=== PATIENT | male | born 1975 | race Caucasian/White ===

== ENCOUNTER 2018-08-18 22:31 | Observation (INO) | payer BC ==
[~2018-08-18] VITALS: Ht 190.5 cm; Wt 83.9 kg
--- NOTE | ~2018-08-18 | OP ---
PATIENT NAME: MALGORZATA ACOSTA MEDICAL RECORD: [id number] LOCATION:[id number] ADMISSION DATE:08/19/18 SURGEON: BHAVYA LUCIO DO DATE OF OPERATION: 08/19/2018 PROCEDURE PERFORMED: Left middle finger proximal interphalangeal joint open reduction with central slip repair with irrigation and debridement. PREOPERATIVE DIAGNOSES: Left middle finger central slip laceration with volar dislocation of the left middle finger PIP joint, this was open. POSTOPERATIVE DIAGNOSES: Left middle finger central slip laceration with volar dislocation of the left middle finger PIP joint, this was open. INDICATIONS: Mr. Acosta is a 43-year-old male who was using a pulp grinder and blender yesterday and a pulp grinder and blender wheel came off and went to his left middle finger causing a laceration and lacerated his central slip and also at the same time dislocated his PIP joint volarly. Upon noticing this, he went to the ER, he was washed out and attempted to be reduced. It could not be reduced in the ER. He was admitted overnight to have surgery today. I informed him of the risks and benefits of the procedure including risk for need for further surgery, repair of the central slip tendon and possible open reduction internal fixation if needed. He is aware of those risks, also the risk of infection and consented to the procedure. DESCRIPTION OF PROCEDURE: The patient was given a block by anesthesia in the operative area. He was given 2 grams Ancef preoperatively, taken to the operative suite. He had been given Ancef and tetanus in the ER prior. Once he was taken to the operative suite, the left upper extremity was prepped and draped with Betadine and a timeout was performed, everyone was agreement with the correct side, site, patient and procedure. Then, I had to remove the sutures that the ER used to loosely close the wound. The wound was then extended in order to open it up. The central slip was seen to be severed at the distal attachment site on the middle phalanx and was tucked into the wound, actually into the joint. This was removed and pulled out of the wound and then the finger reduced easily. The PIP joint reduced easily. This was confirmed on AP and lateral and oblique x-rays. There were no large fragments of fractures noted at that time and the central slip was then repaired with a 4-0 Ethibond using a number of [id number]-yi-[id number] sutures as well as simple sutures to what stump remained tucked into the lateral bands of the finger. Once had a good repair, it was stable and this was confirmed on AP and lateral. The wound was thoroughly irrigated prior to this and after this and then placed into an extension splint. The wound was closed with 4-0 nylon and 4-0 Monocryl in a simple pattern and dressed with Adaptic, 4 x 4s, Webril and then the extension splint was put on just covering the PIP joint, not past the DIP joint and this was overwrapped with an Philipp wrap. The tourniquet was used. The left upper extremity was exsanguinated prior to starting all this, was up for 28 minutes, it was let down at 28 minutes and there was no bleeding. At that time, the patient was awakened and taken to recovery in stable condition. BLOOD LOSS: Minimal. COMPLICATIONS: None. TRANSINT:[id number] Voice Confirmation ID: [id number] DOCUMENT ID: [id number] OPERATIVE REPORT [id number] MALGORZATA ACOSTA,BHAVYA Cruz DO at 0837 CC: [id number] DICTATION DATE: 08/19/18 1433 SLOT ATTENDANT: 08/19/18 1505 DIS IN 08/19/18 [facility] [address] [place] [address]
[2018-08-18 23:38] LABS: HEMATOCRIT 38.3 % (42.0-54.0); HEMOGLOBIN 12.8 g/dL (13.5-17.5); LYMPHOCYTES 21.7 % (15-50); MCH 27.6 pg (26.0-34.0); MCHC 33.4 g/dL (31.0-37.0); MCV 82.7 fL (80.0-100.0); MEAN PLATELET VOLUME 9.3 fL (7.4-10.4); NEUTROPHILS 68.7 % (40-80); PLATELET COUNT 251 10x3/uL (130-400); RBC 4.63 10x6/uL (4.20-6.10); RDW 14.2 % (11.5-14.5); WBC 8.9 10x3/uL (4.8-10.8)
[2018-08-18 23:50] LABS: APTT 33.1 SECONDS (22.8-39.4); INR 1.07 (0.85-1.17); PROTIME 13.5 SECONDS (11.6-15.0)
[2018-08-18 23:54] LABS: ALBUMIN 3.4 g/dL (3.4-5.0); ALKALINE PHOSPHATASE 70 U/L (46-116); ALT (SGPT) 23 U/L (10-68); CALC OSMOLALITY 279 mosm/kg (275-300); CALCIUM 8.3 mg/dL (8.5-10.1); CARBON DIOXIDE 25.9 mmol/L (21.0-32.0); CHLORIDE - SERUM 106 mmol/L (98-107); GLUCOSE 101 mg/dL (74-106); POTASSIUM - SERUM 3.6 mmol/L (3.5-5.1); PROTEIN - SERUM 6.8 g/dL (6.4-8.2); SODIUM 141 mmol/L (136-145); UREA NITROGEN 9 mg/dL (7-18); eGFR NON AFRICAN AMERICAN 87 mL/min (90-120)
[2018-08-19 01:00] VITALS: BP 118/82
[2018-08-19 02:00] VITALS: BP 139/88
[2018-08-19 03:05] VITALS: BP 139/88; BMI 23.1
[2018-08-19 07:53] VITALS: BP 139/85
[2018-08-19 10:17] VITALS: Ht 190.5 cm; Wt 83.9 kg
[2018-08-19 10:32] VITALS: BP 152/87
[2018-08-19] MEDS ORDERED: DURICEF500 MG PO (14:17)
[2018-08-19] MEDS ORDERED: PERCOCET 5-3251 TAB PO (14:17)
== END 2018-08-19 17:00 | disposition home or self-care (01) ==
LOC: D.ER 22:31 → D.EDHOLD 08-19 01:35 → OBSVTIME 08-19 01:35 → D.LD 08-19 01:35
PROVIDERS: Family Medicine
DX: S62.613B Displaced fracture of proximal phalanx of left middle finger, initial encounter for open fracture (principal); W31.89XA Contact with other specified machinery, initial encounter; Z72.0 Tobacco use; S66.323A Laceration of extensor muscle, fascia and tendon of left middle finger at wrist and hand level, initial encounter